=== PATIENT | male | born 1955 | race Caucasian/White ===

== ENCOUNTER 2023-08-18 19:44 | Emergency (ER) | payer MEDICARE, OTHER ==
[~2023-08-18] VITALS: Ht 182.9 cm; Wt 104.3 kg
[2023-08-18] MEDS ORDERED: OXYMETAZOLINE HCL SPRAY 15 ML BOTTLE EN SCH (21:00)
[2023-08-18 21:41] LABS: BASOPHILS # (AUTO) 0.06 K/uL (0.00-0.20); BASOPHILS % (AUTO) 0.6 % (0.0-5.0); EOSINOPHILS # (AUTO) 0.12 K/uL (0.00-0.70); EOSINOPHILS % (AUTO) 1.1 % (0.0-8.0); HEMATOCRIT 37.1 % (42-54); IMMATURE GRANULOCYTE ABSOLUTE 0.09 K/uL (0-1); LYMPHOCYTES # (AUTO) 1.6 K/uL (1.0-4.8); LYMPHOCYTES % (AUTO) 14.9 % (21.0-51.0); MEAN CORPUSCULAR HEMOGLOBIN 30.7 pg (27.0-33.0); MEAN CORPUSCULAR HGB CONC 34.2 g/dL (32.0-36.0); MEAN CORPUSCULAR VOLUME 89.6 fL (79-99); MONOCYTES # (AUTO) 0.7 K/uL (0.1-1.0); MONOCYTES % (AUTO) 6.4 % (3.0-13.0); NEUTROPHILS # (AUTO) 8.2 K/uL (1.8-7.7); NEUTROPHILS % (AUTO) 76.2 % (40.0-77.0); PLATELET COUNT (AUTO) 194 K/uL (130-400); RED BLOOD CELL COUNT(AUTO) 4.14 MIL/uL (4.50-6.20); RED CELL DISTRIBUTION WIDTH 13.8 % (11.0-15.5); WHITE BLOOD COUNT (AUTO) 10.8 K/uL (4.8-10.8)
[2023-08-18 21:54] LABS: CREATININE 1.3 mg/dL (0.5-1.5); INR 0.95 (0.85-1.15); POTASSIUM 4.4 mmol/L (3.5-5.1); PROTHROMBIN TIME 11.1 SEC (9.6-11.6)
[2023-08-18 21:56] LABS: PARTIAL THROMBOPLASTIN TIME 21.9 SEC (26.3-35.5)
[2023-08-18 21:58] LABS: BILIRUBIN,TOTAL 0.3 mg/dL (0.2-1.0); TOTAL PROTEIN, SERUM 6.1 g/dL (6.0-8.3)
[2023-08-18 22:18] VITALS: BP 121/88; PULSE 72; RESP 16; O2SAT 98
== END 2023-08-18 22:26 | disposition home or self-care (01) ==
LOC: EDH 19:44
DX: R04.0 Epistaxis (principal); J44.89 Other specified chronic obstructive pulmonary disease; I10 Essential (primary) hypertension; K21.9 Gastro-esophageal reflux disease without esophagitis; Z88.1 Allergy status to other antibiotic agents; Z88.8 Allergy status to other drugs, medicaments and biological substances
CPT/HCPCS: 36415; 80053; 85025; 85610; 85730

== ENCOUNTER 2025-04-28 06:45 | Day surgery (SDC) | payer OTHER ==
[2025-04-24 10:05] VITALS: BP 96/60; PULSE 61; RESP 17; TEMP 97.3
--- NOTE | 2025-04-24 10:06 | EKG ---
[facility] Test Date: 2025-04-24 Test Time: 09:58:24 Pat Name: YEHUDA COLEMAN Department: COUNTS INCLUDE [facility] BEDS AT THE [facility] Room: Gender: M [employer] Designer: [id number] : [id number] Requested By: JAMAR BARBOSA Order Number: [id number] Reading MD: Rhonda Barnhart Measurements Intervals Adams Rate: 68 P: 82 AK: 172 QRS: -76 QRSD: 112 T: 32 QT: 394 QTc: 402 Interpretive Statements Sinus rhythm Atrial premature complexes Inferior infarct, old No previous ECG available for comparison Electronically Signed On 04-25-2025 08:25:54 CDT by Rhonda Barnhart Please click the below link to view image of tracing.
[2025-04-24 10:07] LABS: IMMATURE GRANULOCYTE ABSOLUTE 0.02 K/uL (0-1); NUCLEATED RED BLOOD CELLS 0.0 % (0.0-0.19); PLATELET COUNT (AUTO) 183 K/uL (130-400); RED BLOOD CELL COUNT(AUTO) 4.74 MIL/uL (4.50-6.20); RED CELL DISTRIBUTION WIDTH 13.3 % (11.0-15.5); WHITE BLOOD COUNT (AUTO) 7.1 K/uL (4.8-10.8)
[2025-04-24 10:20] LABS: CREATININE 0.9 mg/dL (0.5-1.3); GLOMERULAR FILTR. RATE CALC 93.0 mL/min (>90); GLUCOSE,RANDOM 86.0 mg/dL (70-105); SODIUM SERUM 142.0 mmol/L (136-145); UREA NITROGEN, BLOOD 10.0 mg/dL (7-18)
[2025-04-24 10:38] LABS: INR 1.05 (0.85-1.15)
--- NOTE | 2025-04-24 12:55 | NUR ---
REPORTED EKG TO DR. GRUBER. REVIEWED, STATES OK TO PROCEED
[2025-04-28] VITALS (15 sets, daily range): BP systolic 99–140; BP diastolic 60–79; PULSE 68–78; RESP 14–18; TEMP 96.9–97.9
[~2025-04-28] VITALS: Ht 182.9 cm; Wt 85.1 kg
[~2025-04-28 06:45] MED LIST: ALBU18HF7 IH; CALC200T16 PO; CARB30DR OU; CLON0.1T PO; CYAN-35 PO; DORZ10DR9 OU; ERGO400C PO; FAMO40TA7 PO; NIFE-39 PO; OMEP40CA21 PO; POTA20PA32 PO; TEST75GE TP; TIRZ7.5P SQ; TRAV2.5D6 OU
[2025-04-28] MEDS: LACTATED RINGERS 1000ML 1,000 ML IV ONE (07:40)
[2025-04-28] MEDS ORDERED: LIDOCAINE PF 100MG/5ML (2%) SYRINGE 5ML ONE (09:10)
[2025-04-28] MEDS ORDERED: GLYCOPYRROLATE 0.2 MG/ML 5 ML VIAL ONE (09:10)
[2025-04-28] MEDS ORDERED: SUCCINYLCHOLINE CHLORIDE 20 MG/ML 10 ML VIAL ONE (09:11)
[2025-04-28] MEDS ORDERED: NEOSTIGMINE METHYLSULFATE 1MG/ML IV ONE (09:11)
[2025-04-28] MEDS ORDERED: MIDAZOLAM HCL 1 MG/ML 2ML VIAL ONE (09:12)
[2025-04-28] MEDS ORDERED: SUGAMMADEX SODIUM 200 MG/2 ML VIAL IV ONE (11:00)
--- NOTE | 2025-04-28 11:01 | OP ---
Operative Note: DATE OF PROCEDURE: 04/28/25 SURGEON: JAMAR BARBOSA MD ROAD SIGN INSTALLER: [] ANESTHESIA: [] General ANESTHESIOLOGIST/CROSSING GUARD: [] PREOPERATIVE DIAGNOSIS: [] Left inguinal hernia Left incisional hernia POSTOPERATIVE DIAGNOSIS: [] Left inguinal hernia No incisional hernia SYNOPSIS: [] PROCEDURE: [] Robotic repair of left inguinal hernia ESTIMATED BLOOD LOSS: [] None INDICATIONS: [] DESCRIPTION OF PROCEDURE: [] With the patient prepped in usual fashion and a Oneill catheter placed we inserted the Veress needle in the left upper quadrant abdomen insufflated. Supraumbilical incision was created and a millimeter da Dilma trocar was inserted. I appreciate just to the left side inguinal hernia. No incisional hernia was seen. Under direct vision I remove the needle and I placed 2 da Dilma trochars 1 in each the side of the abdomen. Then we placed the patient in Trendelenburg and I docked the robot. I went to the console and observe a left inguinal hernia. This seems to be of the indirect type. Using cautery I scored the peritoneum and I brought him down bluntly. I exposed the Juvenal's ligament and the indirect area I reduce a large hernia sac preserving the spermatic cords and visualizing the vas deferens and spermatic cords. The hernia was reduced without any problems. After observing the myopectineal line and the Juvenal's ligament I placed a 3 D MAX MId mid mesh on the right side. This was a large one. I placed it over the Juvenal's ligament covering couple centimeters below and the indirect space. The sac with the lipoma was placed over the mesh. I then closed the peritoneum with a 2 oh V-Loc. No anchoring of the mesh was necessary. We did a closure continues and dropped the pressure to 8 cm. After this was done I remove the needle and I remove all the trochars under direct vision. The skin was closed with 4-0 Monocryl and Dermabond. We placed 20 cc JAMAR BARBOSA MD Apr 28, 2025 11:01
== END 2025-04-28 12:41 | disposition home or self-care (01) ==
LOC: DAH 06:45
PROVIDERS: ATTEND Surgery
DX: K40.90 Unilateral inguinal hernia, without obstruction or gangrene, not specified as recurrent (principal); E11.9 Type 2 diabetes mellitus without complications; E78.5 Hyperlipidemia, unspecified; I49.1 Atrial premature depolarization; Z98.84 Bariatric surgery status; Z86.73 Personal history of transient ischemic attack (TIA), and cerebral infarction without residual deficits; Z88.8 Allergy status to other drugs, medicaments and biological substances; Z90.89 Acquired absence of other organs; Z98.890 Other specified postprocedural states; Z79.01 Long term (current) use of anticoagulants; Z79.899 Other long term (current) drug therapy
CPT/HCPCS: 80048; 85025; 85610; 85730; 36415; 93005; 49650; A6260; A4663; J7030; A4344; A4215 ×2; J7120; J3010 ×2; J1100; J0330; J0665; J3490 ×2; J2003; J2250; J2704; J2405; J2710; J0690 ×2; C1781; A4930; A4223; A4222; A4221; A4450; A4600; S2900